=== PATIENT | male | born 1980 | race Hispanic/Latino ===

== ENCOUNTER 2021-03-08 15:30 | Emergency (ER) | payer SELFPAY ==
[2021-03-08] MEDS ORDERED: methylPREDNISolone Sod Succ/PF 125 MG/2 ML VIAL ONE (16:01)
[2021-03-08] MEDS ORDERED: diphenhydrAMINE 50 MG/ML VIAL ONE (16:01)
[2021-03-08] MEDS ORDERED: EPINEPHrine 1 MG/ML AMP ONE (16:01)
== END 2021-03-08 18:20 | disposition home or self-care (01) ==
LOC: NAV ERS 15:30
DX: T63.441A Toxic effect of venom of bees, accidental (unintentional), initial encounter (principal); R22.0 Localized swelling, mass and lump, head; K13.0 Diseases of lips; F17.210 Nicotine dependence, cigarettes, uncomplicated
CPT/HCPCS: 96372; 96374; 96375; J0171; J1200; J2930

== ENCOUNTER 2022-01-07 07:33 | Emergency (ER) | payer SELFPAY ==
[2022-01-07] MEDS ORDERED: methylPREDNISolone Sod Succ/PF 125 MG/2 ML VIAL ONE (08:04)
== END 2022-01-07 08:24 | disposition home or self-care (01) ==
LOC: NAV ERS 07:33
DX: L23.7 Allergic contact dermatitis due to plants, except food (principal); F17.210 Nicotine dependence, cigarettes, uncomplicated
CPT/HCPCS: 96372; 99282; J2930